=== PATIENT | female | born 1950 | race Caucasian/White ===

== ENCOUNTER 2017-03-27 05:43 | Emergency (ER) | payer MEDICARE, OTHER ==
[~2017-03-27] VITALS: Ht 167.6 cm; Wt 81.0 kg
[~2017-03-27 05:43] MED LIST: MACROBID100 MG PO; ROBITUSSIN AC10 ML PO; TAM75CAP PO
[2017-03-27] MEDS ORDERED: LISINOPRIL2.5 MG PO (05:59)
[2017-03-27] MEDS ORDERED: ASPIRIN81 MG PO (05:59)
[2017-03-27] MEDS ORDERED: OMEPRAZOLE10 MG PO (06:00)
[2017-03-27] MEDS ORDERED: [UNRECOGNIZED DRUG - OTHER] PO (06:01)
[2017-03-27 06:44] LABS: INFLUENZA A NONE DETECTED (NONE DETECT); INFLUENZA B NONE DETECTED (NONE DETECT)
[2017-03-27 07:02] LABS: HEMATOCRIT 40.1 % (37.0-47.0); HEMOGLOBIN 13.3 g/dl (12.0-16.0); IMMATURE GRANULOCYTES 0.3 % (0.0-1.0); MEAN CELL VOLUME 88.3 fL CALC (80.0-100.0); MEAN CORPUSCULAR HGB 29.3 pG CALC (26.0-32.0); MEAN CORPUSCULAR HGB CONC 33.2 g/L CALC (32.0-36.0); NEUT# 6.1 thou/uL (2.00-7.15); RED BLOOD COUNT 4.54 mill/uL (4.20-5.60); RED CELL DISTRI WIDTH 13.2 % (11.5-15.5)
[2017-03-27 07:20] LABS: ALBUMIN 4.1 g/dL (3.2-5.0); ALKALINE PHOSPHATASE 69 u/l (38-126); ANION GAP 16 (6-22 (CALC)); BILIRUBIN, TOTAL 0.7 mg/dL (0.0-1.4); BUN 8 mg/dL (8-23); BUN/CREATININE RATIO 12 (12-20 (CALC)); CALCIUM 9.3 mg/dL (8.4-10.2); CARBON DIOXIDE 24 mmol/l (22-30); CHLORIDE 103 mmol/l (95-108); CREATININE 0.7 mg/dL (0.5-1.0); GFR > 60 ML/MIN (>=60 (CALC)); GFR FOR AFR.AMER. > 60 ML/MIN (>=60 (CALC)); GLUCOSE 116 mg/dL (82-115); POTASSIUM 4.2 mmol/l (3.5-5.1); SGOT/AST 31 u/l (9-36); SGPT/ALT 35 u/l (11-66); SODIUM 139 mmol/l (137-146); TOTAL PROTEIN 6.6 g/dL (6.3-8.2)
[2017-03-27] MEDS ORDERED: AMOXICILLIN500 M2 PO (07:50)
[2017-03-27] MEDS ORDERED: DELTASONE20 MG PO (07:50)
[2017-03-27 08:00] VITALS: BP 134/87
== END 2017-03-27 08:33 | disposition home or self-care (01) ==
LOC: ED 05:43
PROVIDERS: Emergency Medicine
DX: J02.0 Streptococcal pharyngitis (principal); J20.9 Acute bronchitis, unspecified; Z87.440 Personal history of urinary (tract) infections
CPT/HCPCS: J1956

== ENCOUNTER 2017-04-17 10:17 | Inpatient (IN) | payer MEDICARE, OTHER ==
[~2017-04-17] VITALS: Ht 167.6 cm; Wt 81.0 kg
[~2017-04-17 10:17] MED LIST changes: +AMOXICILLIN500 M2 PO; +ASPIRIN81 MG PO; +DELTASONE20 MG PO; +LISINOPRIL2.5 MG PO; +OMEPRAZOLE10 MG PO; +[UNRECOGNIZED DRUG - OTHER] PO
[2017-04-17 10:51] LABS: HEMATOCRIT 42.1 % (37.0-47.0); HEMOGLOBIN 14.2 g/dl (12.0-16.0); IMMATURE GRANULOCYTES 0.2 % (0.0-1.0); MEAN CELL VOLUME 87.5 fL CALC (80.0-100.0); MEAN CORPUSCULAR HGB 29.5 pG CALC (26.0-32.0); MEAN CORPUSCULAR HGB CONC 33.7 g/L CALC (32.0-36.0); NEUT# 3.13 thou/uL (2.00-7.15); RED BLOOD COUNT 4.81 mill/uL (4.20-5.60); RED CELL DISTRI WIDTH 13.2 % (11.5-15.5)
[2017-04-17] MEDS ORDERED: PYRIDIUM200 MG PO (10:58)
[2017-04-17] MEDS ORDERED: VANTIN200 M1 PO (10:59)
[2017-04-17] MEDS ORDERED: GABAPENTIN100 MG PO (10:59)
[2017-04-17 11:07] LABS: ALBUMIN 4.2 g/dL (3.2-5.0); ALKALINE PHOSPHATASE 65 u/l (38-126); AMYLASE < 30 u/l (30-110); ANION GAP 13 (6-22 (CALC)); BILIRUBIN, TOTAL 0.7 mg/dL (0.0-1.4); BUN 13 mg/dL (8-23); BUN/CREATININE RATIO 18 (12-20 (CALC)); CALCIUM 9.7 mg/dL (8.4-10.2); CARBON DIOXIDE 26 mmol/l (22-30); CHLORIDE 104 mmol/l (95-108); CREATININE 0.7 mg/dL (0.5-1.0); GFR > 60 ML/MIN (>=60 (CALC)); GFR FOR AFR.AMER. > 60 ML/MIN (>=60 (CALC)); GLUCOSE 98 mg/dL (82-115); LIPASE 87 u/l (23-300); POTASSIUM 4.1 mmol/l (3.5-5.1); SGOT/AST 22 u/l (9-36); SGPT/ALT 30 u/l (11-66); SODIUM 140 mmol/l (137-146); TOTAL PROTEIN 6.6 g/dL (6.3-8.2)
[2017-04-17 11:18] LABS: MYOGLOBIN 26 ng/mL (0 - 62)
[2017-04-17 12:43] VITALS: BP 146/74
[2017-04-17 15:40] VITALS: BP 122/56
[2017-04-17 19:08] VITALS: BP 96/57
[2017-04-18 00:10] VITALS: BP 99/64
[2017-04-18 04:16] VITALS: BP 114/71
[2017-04-18 07:12] LABS: CHOLESTEROL HDL RATIO 3.7 (<4.4 (CALC))
[2017-04-18 07:36] VITALS: BP 130/72
[2017-04-18 11:59] VITALS: BP 104/57
[2017-04-18 12:27] LABS: URINE BILIRUBIN - DIPSTICK NEGATIVE (NEGATIVE); URINE BLOOD DIPSTICK NEGATIVE (NEGATIVE); URINE COLOR YELLOW; URINE GLUCOSE - DIPSTICK NEGATIVE (NEGATIVE); URINE KETONE NEGATIVE (NEGATIVE); URINE LEUK ESTERASE MODERATE (NEGATIVE); URINE NITRITE - DIPSTICK NEGATIVE (Negative); URINE PROTEIN - DIPSTICK NEGATIVE (NEG-TRACE); URINE SPECIFIC GRAVITY <=1.005; URINE UROBILINOGEN - DIPSTICK 0.2 E.U./dL (0.2)
[2017-04-18 12:28] LABS: URINE CLARITY HAZY
[2017-04-18 12:29] LABS: URINE BACTERIA FEW hpf; URINE EPITHELIAL CELLS RARE EPI/hpf (0-FEW)
[2017-04-18 15:26] VITALS: BP 114/74
== END 2017-04-18 16:35 | disposition short-term general hospital (02) | DRG 311 ==
LOC: ED 10:17 → ED-I 11:35 → ED 11:50 → MS2 11:51
PROVIDERS: Emergency Medicine; Nurse Practitioner Family; ADMIT Internal Medicine; ATTEND Internal Medicine
DX: I20.0 Unstable angina (principal); I10 Essential (primary) hypertension; I44.7 Left bundle-branch block, unspecified; K21.9 Gastro-esophageal reflux disease without esophagitis; R33.9 Retention of urine, unspecified; R91.1 Solitary pulmonary nodule; Z87.440 Personal history of urinary (tract) infections; Z87.891 Personal history of nicotine dependence
CPT/HCPCS: G0378; J1650

== ENCOUNTER 2017-07-27 09:46 | Day surgery (SDC) | payer MEDICARE, OTHER ==
[~2017-07-27] VITALS: Ht 162.6 cm; Wt 81.6 kg
[~2017-07-27 09:46] MED LIST changes: +CALCIUM + D3 601 TAB PO; +GABAPENTIN100 MG PO; +MULTI VIT PO; +PROBIOTI3 PO; +PYRIDIUM200 MG PO; +VANTIN200 M1 PO
[2017-07-27 13:04] VITALS: BP 144/64
== END 2017-07-27 10:55 | disposition home or self-care (01) ==
LOC: ENDO 09:46 → ORM 11:00 → ENDO 11:00
PROVIDERS: ATTEND Surgery
PROC: 0DJ08ZZ Inspection of Upper Intestinal Tract, Via Natural or Artificial Opening Endoscopic (ICD-10-PCS; principal; 2017-07-27)
DX: K44.9 Diaphragmatic hernia without obstruction or gangrene (principal); Q40.2 Other specified congenital malformations of stomach; K21.9 Gastro-esophageal reflux disease without esophagitis; I10 Essential (primary) hypertension

== ENCOUNTER → 2018-07-14 | Outpatient (REF) | payer MEDICARE, OTHER | END | disposition home or self-care (01) | LOC: NUCMED 08:15 → STRESS 08:23 | PROVIDERS: ATTEND Internal Medicine | DX: I20.9 Angina pectoris, unspecified (principal); I44.7 Left bundle-branch block, unspecified; I47.9 Paroxysmal tachycardia, unspecified | CPT/HCPCS: A9502; J2785 ==

== ENCOUNTER 2019-10-19 23:35 | Emergency (ER) | payer MEDICARE, OTHER ==
[2019-10-20 00:35] LABS: HEMATOCRIT 40.2 % (37.0-47.0); HEMOGLOBIN 13.2 g/dl (12.0-16.0); IMMATURE GRANULOCYTES 0.1 % (0.0-5.0); MEAN CELL VOLUME 86.5 fL CALC (80.0-100.0); MEAN CORPUSCULAR HGB 28.4 pG CALC (26.0-32.0); MEAN CORPUSCULAR HGB CONC 32.8 g/dL CAL (32.0-36.0); NEUT# 4.22 thou/uL (2.00-7.15); RED BLOOD COUNT 4.65 mill/uL (4.20-5.60); RED CELL DISTRI WIDTH 13.3 % (11.5-15.5)
[2019-10-20] MEDS ORDERED: TOPROL XL25 M1 PO (00:37)
[2019-10-20] MEDS ORDERED: LOSARTAN POTASS50 MG PO (00:38)
[2019-10-20] MEDS ORDERED: CRANBERR3 PO (00:38)
[2019-10-20 00:40] LABS: ALBUMIN 4.3 g/dL (3.2-5.0); ALKALINE PHOSPHATASE 85 u/l (38-126); AMYLASE 48 u/l (30-110); ANION GAP 12 (6-22 (CALC)); BILIRUBIN, TOTAL 0.3 mg/dL (0.0-1.4); BUN 13 mg/dL (8-23); BUN/CREATININE RATIO 20 (12-20 (CALC)); CARBON DIOXIDE 24 mmol/l (22-30); CHLORIDE 99 mmol/l (95-108); CREATININE 0.6 mg/dL (0.5-1.0); GFR > 60 ML/MIN (>=60 (CALC)); GFR FOR AFR.AMER. > 60 ML/MIN (>=60 (CALC)); LIPASE 127 u/l (23-300); POTASSIUM 3.5 mmol/l (3.5-5.1); SGOT/AST 29 u/l (9-36); SODIUM 132 mmol/l (137-146); TOTAL PROTEIN 7.1 g/dL (6.3-8.2)
[2019-10-20 00:52] LABS: MYOGLOBIN 28 ng/mL (0 - 62)
[2019-10-20 01:25] VITALS: BP 139/61
== END 2019-10-20 01:27 | disposition home or self-care (01) ==
LOC: ED 23:35
PROVIDERS: Emergency Medicine
DX: M79.621 Pain in right upper arm (principal); I10 Essential (primary) hypertension; I44.7 Left bundle-branch block, unspecified